=== PATIENT | female | born 1990 | race Caucasian/White ===

== ENCOUNTER 2023-06-07 09:35 | Inpatient (IN) | payer BC ==
[2023-06-07] MEDS ORDERED: Ondansetron PF 4 MG/2 ML Vial IVP PRN (10:01)
[2023-06-07] MEDS ORDERED: Lidocaine 1% (PF) 30 ML VIAL SC PRN (10:01)
[2023-06-07] MEDS ORDERED: hydrALAZINE 20 MG/ML VIAL SLOW IVP PRN (10:01)
[2023-06-07] MEDS ORDERED: Promethazine HCl 25 MG/ML VIAL IM PRN (10:01)
[2023-06-07 10:06] VITALS: BMI 34.2
[2023-06-07] MEDS ORDERED: Butorphanol Tartrate 1 MG/ML VIAL SLOW IVP PRN (10:07)
[2023-06-07] MEDS ORDERED: Carboprost 250 MCG/ML AMP IM PRN (10:07)
[2023-06-07] MEDS ORDERED: Docusate 100 MG CAP PO PRN (10:07)
[2023-06-07] MEDS ORDERED: Acetaminophen 500 MG TAB PO PRN (10:07)
[2023-06-07] MEDS ORDERED: Zolpidem Tartrate 5 MG TAB PO PRN (10:07)
[2023-06-07] MEDS ORDERED: Diphenoxylate HCl/Atropine Tablet PO PRN ×2 (10:07)
[2023-06-07] MEDS ORDERED: Misoprostol 200 MCG TAB PR PRN (10:07)
[2023-06-07] MEDS ORDERED: Ibuprofen 800 MG TAB PO PRN (10:08)
[2023-06-07] MEDS ORDERED: HYDROcodone/Acetaminophen 5/325 mg Tablet PO PRN ×2 (10:08)
[2023-06-07] MEDS ORDERED: Lorazepam 2 MG/ML VIAL SLOW IVP PRN (10:10)
[2023-06-07] MEDS ORDERED: Oxytocin 30 units/NS 500 ML 500 ML IV SCH ×3 (10:15)
[2023-06-07] MEDS ORDERED: Lactated Ringer's 1,000 ML IV SCH (10:15)
[2023-06-07] MEDS ORDERED: Labetalol HCl 200 MG TAB PO SCH ×3 (10:30→18:30)
[2023-06-07 10:58] LABS: #Basophils 0.1 10x3/uL (0.0-0.2); #Monocytes 0.5 10x3/uL (0.0-1.1); #Neutrophils 4.2 10x3/uL (1.5-8.4); %Basophils 0.8 % (0.0-2.0); %Eosinophils 0.3 % (0.0-6.0); %Lymphocytes 28.4 % (18.0-47.0); %Monocytes 7.1 % (0.0-10.0); %Neutrophils 62.3 % (40.0-75.0); Hematocrit 34.4 % (34.9-44.5); Mean Corpuscular Hemoglobin 26.4 pg (27.0-33.0); Mean Corpuscular Volume 82.7 fl (81.6-98.3); Mean Platelet Volume 10.8 fl (7.4-10.4); Platelet Count 335 10x3/uL (150-450); RBC Distribution Width 15.8 % (11.5-14.5); Red Blood Cell (RBC) Count 4.16 10x6/uL (3.90-5.03); White Blood Cell (WBC) Count 6.7 10x3/uL (3.5-10.5)
[2023-06-07 11:37] LABS: HBSAg Index 0.16 S/CO (0-0.99); Hep B Surf Ag - L&D Non-Reactive S/CO (NonReactive)
[2023-06-07 11:40] LABS: Syphilis Antibody Nonreactive (Nonreactive); Syphilis Antibody Index 0.04 S/CO (<1.00 Non-Reactive)
[2023-06-07 12:26] LABS: HIV (1/2) Antibody/Antigen Non-Reactive (NonReactive); HIV 1/2 INDEX 0.05 S/CO (<1.00)
[2023-06-07 12:28] LABS: ALT (SGPT) 34 U/L (8-55); AST (SGOT) 41 U/L (5-34); Albumin 3.2 g/dL (3.5-5.0); Alkaline Phosphatase 279 U/L (40-110); Bilirubin, Direct 0.2 mg/dL (0.1-0.3); Bilirubin, Total 0.5 mg/dL (0.2-1.2); Protein, Total 6.2 g/dL (6.0-8.3)
[2023-06-07] MEDS: Misoprostol 100 MCG TAB VAG SCH (13:36)
[2023-06-07] MEDS ORDERED: Bupivacaine 0.25% HCL 30 ML VIAL ONE (14:00)
[2023-06-07] MEDS: fentaNYL 50 mcg/mL 1 mL Vial SLOW IVP PRN ×4 (15:46→22:59)
[2023-06-07 17:33] LABS: Uric Acid 6.3 mg/dL (2.6-6.0)
[2023-06-08] MEDS: fentaNYL 50 mcg/mL 1 mL Vial SLOW IVP PRN (01:08)
[2023-06-08] MEDS ORDERED: fentaNYL/Ropivacaine Epidural 100 ML ONE (02:08)
[2023-06-08] MEDS ORDERED: Lactated Ringer's 500 ML IV PRN (02:58)
[2023-06-08] MEDS ORDERED: Moisturizing Cream (Eucerin) 113 GM JAR TOP PRN (02:58)
[2023-06-08] MEDS ORDERED: Ondansetron PF 4 MG/2 ML Vial IVP PRN ×2 (02:58→09:02)
[2023-06-08] MEDS ORDERED: diphenhydrAMINE 50 MG/ML VIAL IVP PRN (02:58)
[2023-06-08] MEDS ORDERED: Naloxone HCl 0.4 mg/ml Vial IVP PRN ×2 (02:58)
[2023-06-08] MEDS ORDERED: Promethazine HCl 25 MG/ML VIAL IM PRN (02:58)
[2023-06-08] MEDS ORDERED: Acetaminophen 325 MG TAB PO PRN ×2 (02:58→09:04)
[2023-06-08] MEDS ORDERED: ePHEDrine Sulfate 50 MG/10 ML VIAL SLOW IVP PRN (02:58)
[2023-06-08] MEDS ORDERED: Communication Order-Pharmacy FS SCH (03:00)
[2023-06-08] MEDS ORDERED: fentaNYL 2 mcg/Ropivacaine 0.2% Epidural 100 ML CADD EPIDURAL SCH (03:00)
[2023-06-08] MEDS ORDERED: Labetalol HCl 200 MG TAB PO SCH ×3 (09:00→10:30)
[2023-06-08] MEDS ORDERED: Lanolin Ointment 7 GM TUBE TOP PRN (09:02)
[2023-06-08] MEDS ORDERED: HYDROcodone/Acetaminophen 5/325 mg Tablet PO PRN (09:02)
[2023-06-08] MEDS ORDERED: hydrALAZINE 20 MG/ML VIAL SLOW IVP PRN (09:02)
[2023-06-08] MEDS ORDERED: Benzocaine-Menthol 82.5 ML CAN TOP PRN (09:02)
[2023-06-08] MEDS ORDERED: Bisacodyl 10 MG SUPP PR PRN (09:02)
[2023-06-08] MEDS ORDERED: Misoprostol 200 MCG TAB VAG PRN (09:02)
[2023-06-08] MEDS ORDERED: diphenhydrAMINE 25 MG CAP PO PRN (09:02)
[2023-06-08] MEDS ORDERED: Preparation H Ointment 28 GM TUBE PR PRN (09:02)
[2023-06-08] MEDS ORDERED: Milk Of Magnesia 30 ML UDCUP PO PRN (09:02)
[2023-06-08] MEDS ORDERED: Witch Hazel-Glycerin 1 EACH JAR TOP PRN (09:04)
[2023-06-08] MEDS ORDERED: Oxytocin 30 units/NS 500 ML 500 ML IV SCH (09:15)
[2023-06-08] MEDS: Boostrix 0.5 ML (Tdap) VIAL (>/=7 yrs of age) IM ONE (12:07)
[2023-06-08] MEDS: Ferrous Sulfate 325 MG TAB PO SCH ×3 (12:08→18:22)
[2023-06-08] MEDS: Misoprostol 100 MCG TAB VAG SCH ×2 (12:09→12:10)
[2023-06-08] MEDS: Ibuprofen 800 MG TAB PO SCH ×2 (13:02→21:10)
[2023-06-08] MEDS: HYDROcodone/Acetaminophen 5/325 mg Tablet PO PRN ×2 (13:03→19:28)
[2023-06-08] MEDS ORDERED: Tranexamic Acid 1,000 MG/10 ML VIAL ONE (15:25)
[2023-06-08] MEDS ORDERED: Methylergonovine 0.2 MG/ML VIAL ONE (15:25)
[2023-06-08] MEDS ORDERED: Carboprost 250 MCG/ML AMP ONE (15:26)
[2023-06-08 16:15] LABS: Hematocrit 27.4 % (34.9-44.5); Hemoglobin 8.8 g/dL (12.0-15.5); Mean Corpuscular HGB CONC 32.1 g/dL (32.0-36.0); Mean Corpuscular Hemoglobin 27.4 pg (27.0-33.0); Mean Corpuscular Volume 85.4 fl (81.6-98.3); Mean Platelet Volume 11.2 fl (7.4-10.4); Platelet Count 252 10x3/uL (150-450); RBC Distribution Width 16.4 % (11.5-14.5); Red Blood Cell (RBC) Count 3.21 10x6/uL (3.90-5.03); White Blood Cell (WBC) Count 14.3 10x3/uL (3.5-10.5)
[2023-06-08] MEDS: Labetalol HCl 200 MG TAB PO SCH ×2 (16:27→21:11)
[2023-06-08 16:57] LABS: D-Dimer Test 12.64 mg/L FEU (0.19-0.50); INR-International Normal Ratio 0.9; PTT 27.1 sec (22.0-33.0); Prothrombin Time 9.6 sec (9.5-12.1)
[2023-06-08] MEDS: Docusate 100 MG CAP PO SCH (21:00)
[2023-06-09 04:15] LABS: Hematocrit 22.9 % (34.9-44.5); Hemoglobin 7.2 g/dL (12.0-15.5); Mean Corpuscular HGB CONC 31.4 g/dL (32.0-36.0); Mean Corpuscular Hemoglobin 26.8 pg (27.0-33.0); Mean Corpuscular Volume 85.1 fl (81.6-98.3); Mean Platelet Volume 10.8 fl (7.4-10.4); Platelet Count 242 10x3/uL (150-450); RBC Distribution Width 16.4 % (11.5-14.5); Red Blood Cell (RBC) Count 2.69 10x6/uL (3.90-5.03); White Blood Cell (WBC) Count 13.9 10x3/uL (3.5-10.5)
[2023-06-09] MEDS: Ibuprofen 800 MG TAB PO SCH ×3 (05:03→20:33)
[2023-06-09] MEDS: Labetalol HCl 200 MG TAB PO SCH ×2 (09:18→17:27)
[2023-06-09] MEDS: Docusate 100 MG CAP PO SCH ×2 (09:18→20:34)
[2023-06-09] MEDS: Ferrous Sulfate 325 MG TAB PO SCH ×2 (09:19→17:51)
[2023-06-09] MEDS: Prenatal Vitamin 1 TAB PO SCH (09:19)
[2023-06-09] MEDS: HYDROcodone/Acetaminophen 5/325 mg Tablet PO PRN ×3 (09:20→20:33)
[2023-06-10] MEDS: Ibuprofen 800 MG TAB PO SCH ×2 (06:01→14:49)
[2023-06-10 07:57] VITALS: BP 130/81; TEMP 98.5
[2023-06-10] MEDS: Ferrous Sulfate 325 MG TAB PO SCH (09:19)
[2023-06-10] MEDS: Prenatal Vitamin 1 TAB PO SCH (09:19)
[2023-06-10] MEDS: Docusate 100 MG CAP PO SCH (09:20)
[2023-06-10] MEDS: HYDROcodone/Acetaminophen 5/325 mg Tablet PO PRN (09:22)
[2023-06-10] MEDS: Boostrix 0.5 ML (Tdap) VIAL (>/=7 yrs of age) IM ONE (14:50)
== END 2023-06-10 15:23 | disposition home or self-care (01) | DRG 807 ==
LOC: CSHLD 09:35 → CSHPP 06-08 11:37
PROVIDERS: ADMIT Obstetrics & Gynecology; ATTEND Obstetrics & Gynecology
PROC: 10E0XZZ Delivery of Products of Conception, External Approach (ICD-10-PCS; principal; 2023-06-08)
PROC: 10907ZC Drainage of Amniotic Fluid, Therapeutic from Products of Conception, Via Natural or Artificial Opening (ICD-10-PCS; 2023-06-08)
PROC: 3E0P7VZ Introduction of Hormone into Female Reproductive, Via Natural or Artificial Opening (ICD-10-PCS; 2023-06-08)
PROC: 0UQGXZZ Repair Vagina, External Approach (ICD-10-PCS; 2023-06-08)
DX: O13.4 Gestational [pregnancy-induced] hypertension without significant proteinuria, complicating childbirth (principal); Z37.0 Single live birth; Z3A.39 39 weeks gestation of pregnancy; Z88.2 Allergy status to sulfonamides; Z88.8 Allergy status to other drugs, medicaments and biological substances; O71.4 Obstetric high vaginal laceration alone; O72.1 Other immediate postpartum hemorrhage
CPT/HCPCS: 36415; 51702; 80076; 82570; 83615; 84156; 84550; 85027; 85049; 85300; 85362; 85379; 85384; 85610; 85730; 86780; 86850; 86900; 86901; 87340; 87389; 90715; J2590; J3010; J3490; S0020